=== PATIENT | female | born 1950 | race Caucasian/White ===

== ENCOUNTER 2022-10-04 07:28 | Emergency (ER) | payer OTHER ==
[~2022-10-04] VITALS: Ht 157.4 cm; Wt 83.9 kg
[~2022-10-04 07:28] MED LIST: ACTOS45 MG PO; ATENOLOL25 MG PO; AUGMENTIN 875 M1 TAB PO; LISINOPRIL/HYDR1 TA1 PO; LOVASTATIN20 MG PO; METFORMIN HCL1000 MG PO; VICODIN ES 7501 TA1 PO
[2022-10-04] MEDS ORDERED: AMOX-CLAV 875-1 EACH PO (08:02)
== END 2022-10-04 08:09 | disposition home or self-care (01) ==
LOC: ED 07:28
DX: H66.92 Otitis media, unspecified, left ear (principal); J32.8 Other chronic sinusitis; Z79.899 Other long term (current) drug therapy; Z90.49 Acquired absence of other specified parts of digestive tract; Z98.890 Other specified postprocedural states